=== PATIENT | female | born 1985 | race Two or more races ===

== ENCOUNTER 2020-11-08 22:05 | Emergency (ER) | payer OTHER ==
[~2020-11-08] VITALS: Ht 154.9 cm; Wt 66.8 kg
[2020-11-08 22:12] VITALS: BP 142/69
[2020-11-08 22:51] LABS: BASOPHILS % (AUTO) 0 % (0-1); EOSINOPHILS % (AUTO) 0 % (1-7); LYMPHOCYTES % (AUTO) 19 % (22-44); MEAN CORPUSCULAR HGB CONC 34.1 g/dL (32.4-35.8); MEAN PLATELET VOLUME 7.5 fL (7.4-10.4); MONOCYTES % (AUTO) 6 % (2-9); NEUTROPHILS % (AUTO) 74 % (42-75); PLATELET COUNT 356 x10^3/uL (130-400); RED BLOOD COUNT 4.66 x10^6/uL (3.82-5.3); RED CELL DISTRIBUTION WIDTH 13.7 % (9.6-15.2)
[2020-11-08 22:59] LABS: ALBUMIN 3.7 g/dL (3.4-5.0); ANION GAP 11 mmol/L (5-15); CALCIUM 9.1 mg/dL (8.5-10.1); CHLORIDE 108 mmol/L (98-107)
[2020-11-08 23:21] LABS: ALANINE AMINOTRANSFERASE 35 U/L (12-78); ALKALINE PHOSPHATASE 64 U/L (45-117); BILIRUBIN,TOTAL 0.6 mg/dL (0.2-1.0); CREATININE 0.52 mg/dL (0.55-1.02); TOTAL PROTEIN 8.4 g/dL (6.4-8.2)
--- NOTE | 2020-11-09 01:54 | NUR ---
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
[2020-11-09] MEDS ORDERED: ONDANSETRON ODT 4 MG ONE (02:29)
[2020-11-09] MEDS ORDERED: ONDANSETRON ODT 8 MG PO ONE (02:30)
[2020-11-09 02:44] LABS: MICROSCOPIC INDICATED
--- NOTE | 2020-11-09 02:55 | NUR ---
STARTED ON PO CHALLANGE.
--- NOTE | 2020-11-09 03:20 | NUR ---
PT KEPT DOWN WATER. DENIES ANY NEEDS. AWARE CHART UP FOR REVIEW.
== END 2020-11-09 03:52 | disposition home or self-care (01) ==
LOC: ED 11-09 03:46
DX: O21.1 Hyperemesis gravidarum with metabolic disturbance (principal); Z3A.08 8 weeks gestation of pregnancy
CPT/HCPCS: 36415; 76801; 80053; 81001; 84702; 85025; 87086; 99284; Q0162